=== PATIENT | female | born 1965 | race Hispanic/Latino ===

== ENCOUNTER → 2024-11-20 | Day surgery (SDC) | payer OTHER ==
[~2024-11-20] MED LIST: HYDROCHLOROTHIA25 MG PO; LIDOCAINE HCL 2% LOCAL INJ 5 ML SDV VIAL INJ ONE; MIDAZOLAM HCL 2 MG/2 ML VIAL ONE; MULTIVITAMINS1 EAC8 PO; PROPOFOL IV EMULSION 10 MG/ML 20 ML VIAL ONE
[2024-11-20] MEDS: LACTATED RINGER'S 1,000 ML ONE (08:35)
[2024-11-20 10:44] VITALS: TEMP 97.9
[2024-11-20 11:05] VITALS: BP 120/67; PULSE 62; RESP 16; O2SAT 100
== END | disposition home or self-care (01) ==
LOC: OR 07:44
PROVIDERS: ATTEND Internal Medicine Gastroenterology
DX: Z12.11 Encounter for screening for malignant neoplasm of colon (principal); D12.3 Benign neoplasm of transverse colon; D12.5 Benign neoplasm of sigmoid colon; D12.8 Benign neoplasm of rectum; I10 Essential (primary) hypertension; Z01.810 Encounter for preprocedural cardiovascular examination
CPT/HCPCS: 45380; 45384; 45385; 93005; J2003; J2250; J2704; J7121